=== PATIENT | female | born 1980 | race Caucasian/White ===

== ENCOUNTER 2024-12-01 01:34 | Emergency (ER) | payer OTHER ==
[2024-12-01 02:17] LABS: #Basophils 0.1 thou/uL (0.0-0.2); #Eosinophils 0.2 thou/uL (0.0-0.7); #Lymphocytes 3.4 thou/uL (1.20-3.40); #Monocytes 0.5 thou/uL (0.11-0.59); #Neutrophils 4.3 thou/uL (1.40-6.50); %Basophils 1.1 % (0.0-1.0); %Eosinophils 1.8 % (0.0-10.0); %Lymphocytes 40.4 % (21.0-51.0); %Monocytes 6.3 % (0.0-10.0); %Neutrophils 50.4 % (42.0-75.0); Hematocrit 45.2 % (36.0-47.0); Hemoglobin 15.6 g/dL (12.0-16.0); Mean Corpuscular Hemoglobin 28.7 pg (27.0-31.0); Mean Corpuscular Volume 83.2 fl (78.0-98.0); Platelet Count 332 10x3/uL (130-400); Red Blood Cell (RBC) Count 5.44 mill/uL (4.20-5.40); White Blood Cell (WBC) Count 8.5 10x3/uL (4.8-10.8)
[2024-12-01 02:27] LABS: ALT (SGPT) 14 U/L (Less than 34); AST (SGOT) 22 U/L (11-34); Albumin 4.3 g/dL (3.1-4.5); Alkaline Phosphatase 79 U/L (40-110); Anion Gap 15 mmol/L (10-20); BUN (Urea Nitrogen) 10 mg/dL (7.0-18.7); Bilirubin, Total 0.2 mg/dL (0.3-1.2); Calc. Creatinine Clearance 0 mL/min (70-130); Calcium 9.6 mg/dL (7.8-10.44); Carbon Dioxide 26 mmol/L (22-29); Chloride 102 mmol/L (98-107); Globulin 3.1 g/dL (2.4-3.5); Glucose 95 mg/dL (70-105); Potassium 4.3 mmol/L (3.5-5.1); Sodium 139 mmol/L (136-145)
[2024-12-01 02:28] LABS: Troponin I Less than 0.010 ng/mL (< 0.028)
== END 2024-12-01 02:46 | disposition home or self-care (01) ==
LOC: NAV ERS 01:34
DX: R00.2 Palpitations (principal); F41.9 Anxiety disorder, unspecified; K21.9 Gastro-esophageal reflux disease without esophagitis; Z79.899 Other long term (current) drug therapy
CPT/HCPCS: 80053; 84484; 85025; 96374; J2060